=== PATIENT | female | born 1995 | race African-American/Black ===

== ENCOUNTER 2016-08-08 17:27 | Emergency (ER) | payer OTHER ==
[~2016-08-08] VITALS: Ht 157.5 cm; Wt 103.6 kg
[~2016-08-08 17:27] MED LIST: ASPIRIN EC325 MG PO; CEPHALEXIN500 MG PO; DEPO-SUBQ104 MG/0.6 SQ; DOCUSATE SODIU100 MG PO; MOTRIN800 MG PO; NAPROXEN500 MG PO; NOHOMEMEDS; OXYCODONE HCL5 MG PO; OXYCONTIN10 MG PO; PERCOCET 5/31 TABLET PO; PRENATAL TABLE1 EAC3 PO; RISPERDAL0.5 MG PO; RISPERDAL1 MG PO; SERTRALINE HCL25 MG PO; TOBRAMYCIN SULFA5 ML LEFT EYE; VENTOLIN HFA18 GM IH
[2016-08-08 18:21] VITALS: BP 104/67
== END 2016-08-08 18:24 ==
LOC: EME 17:27
DX: T40.7X4A Poisoning by cannabis (derivatives), undetermined, initial encounter (principal); Y92.248 Other public administrative building as the place of occurrence of the external cause
CPT/HCPCS: 99281; 99284